=== PATIENT | female | born 1950 | race American Indian/Alaskan Native ===

== ENCOUNTER 2017-12-31 06:03 | Day surgery (SDC) | payer MEDICARE, OTHER ==
[~2017-12-31 06:03] MED LIST: LACTATED RINGERS 1,000 ML IV SCH; VERSED IV NR
[2017-12-31] MEDS ORDERED: ZOFRAN IV PRN (07:00)
[2017-12-31] MEDS ORDERED: TORADOL IV PRN (07:00)
[2017-12-31] MEDS ORDERED: DILAUDID IV PRN (07:00)
--- NOTE | 2017-12-31 07:01 | Anesthesia Day of Surgery ---
Anesthesia Day of Surgery - Day of Surgery Patient Examined: Yes Patient H&P Reviewed: Yes Patient is NPO: Yes
--- NOTE | 2017-12-31 07:01 | Anesthesia Consultation ---
Anesthesia Consult and Med Hx Date of service: 12/31/17 - Airway Anesthetic Teeth Evaluation: Good ROM Head & Neck: Adequate Mental/Hyoid Distance: Adequate Mallampati Class: Class II Intubation Access Assessment: Probably Good - Pulmonary Exam CTA: Yes - Cardiac Exam Cardiac Exam: RRR - Pre-Operative Health Status ASA Pre-Surgery Classification: ASA2 Proposed Anesthetic Plan: General (GA with LMA ok) - Pulmonary Hx Asthma: Yes - Cardiovascular System Hx Hypertension: Yes (30 YEARS) - Central Nervous System Hx Psychiatric Problems: No - Other Systems Hx Alcohol Use: Yes (OCCA) Hx Substance Use: No Hx Cancer: Yes
[2017-12-31] MEDS ORDERED: ANCEF/STERILE WATER 2 GM/20 ML IV NR (07:55)
[2017-12-31 08:13] LABS: Hematocrit 40.5 % (30.3-42.9); Hemoglobin 13.4 gm/dl (10.1-14.3); Mean Corpuscular HGB Conc 33 % (30-34); Mean Corpuscular Hemoglobin 31 pg (28-32); Mean Corpuscular Volume 93 fl (79-97); Platelet Count 232 K/mm3 (140-440); Red Blood Count 4.35 M/mm3 (3.65-5.03); Red Cell Distribution Width 14.1 % (13.2-15.2)
--- NOTE | 2017-12-31 08:17 | Short Stay Summary ---
Short Stay Documentation Date of service: 12/31/17 - History H&P: obtained from office - Allergies and Medications Current Medications: Allergies No Known Allergies Allergy (Verified 12/24/17 15:18) Home Medications Medication Instructions Recorded Confirmed Last Taken Type Allopurinol 300 mg PO DAILY 12/24/17 12/24/17 Unknown History Budesonide/Formoterol Fumarate 2 inh INHALATION DAILY 12/24/17 12/24/17 Unknown History [Symbicort 160-4.5 Mcg Inhaler] Cholecalciferol (Vitamin D3) 5,000 unit PO DAILY 12/24/17 12/24/17 Unknown History [Vitamin D3] Fesoterodine Fumarate [Toviaz] 4 mg PO DAILY 12/24/17 12/24/17 Unknown History Levalbuterol Tartrate [Xopenex Hfa] 1 puff IH DAILY PRN 12/24/17 12/24/17 Unknown History Potassium Citrate [Potassium 15 meq PO DAILY 12/24/17 12/24/17 Unknown History Citrate ER] RX: Montelukast Sodium 10 mg PO DAILY 12/24/17 12/24/17 Unknown History RX: amLODIPine [Norvasc] 5 mg PO DAILY 12/24/17 12/24/17 Unknown History Active Medications Cefazolin Sodium (Ancef/Sterile Water 2 Gm/20 Ml) 2 gm IV PREOP NR Hydromorphone HCl (Dilaudid) 0.5 mg IV Q10MIN PRN PRN Reason: Pain , Severe (7-10) Stop: 12/31/17 13:00 Lactated Ringer's (Lactated Ringers) 1,000 mls @ 100 mls/hr IV DIRECT MOUNA Last Admin: 12/31/17 08:06 Dose: 100 mls/hr Ketorolac Tromethamine (Toradol) 30 mg IV ONCE PRN PRN Reason: Pain, Moderate (4-6) Stop: 12/31/17 13:00 Midazolam HCl (Versed) 2 mg IV PREOP NR Stop: 12/31/17 23:59 Last Admin: 12/31/17 08:06 Dose: 2 mg Ondansetron HCl (Zofran) 4 mg IV ONCE PRN PRN Reason: Nausea And Vomiting Stop: 12/31/17 13:00 - Brief post op/procedure progress note Date of procedure: 12/31/17 Pre-op diagnosis: Left breast sebaceos cyst of the lower outer quadrant Post-op diagnosis: same Procedure: Left breast sebaceous cyst excisional biopsy of the lower outer quadrant Anesthesia: MAC Findings: Left breast sebaceous cyst at the 5:00 position 6 cm from the nipple Surgeon: RAZ GILLILAND Estimated blood loss: minimal Pathology: list (left breast sebaceous cyst) Specimen disposition: to lab Condition: stable - Disposition Condition at discharge: Good Disposition: DC-01 TO HOME OR SELFCARE Short Stay Discharge Plan Activity: other (no heavy lifting) Diet: regular Wound: other (keep incision clean and dry; may shower in 24 hours; no baths, pools or lakes; do not rub or scrub incision; wear supportive bra) Follow up with: GOOD DURAND MD [Primary Care Provider] - 7 Days RAZ GILLILAND MD [Staff Physician] - 7 Days
--- NOTE | 2017-12-31 08:19 | Operative Report ---
Operative Report Operative Report: Date of Service: December 31, 2017 Preoperative diagnosis: Left breast sebaceous cyst of the lower outer quadrant Postoperative diagnosis: Same Procedure: Left breast sebaceous cyst lowerouter quadrant excisional biopsy Surgeon: Mone Cueva M.D. Findings: Left breast sebaceous cyst of the lower outer quadrant Complications: None Drains: None Estimated blood loss: Minimal Disposition: PACU in good condition Indication for operative procedure: This is a 67-year-old lady with a personal history of right breast cancer. She recently had left breast sebaceous cyst infection that was treated with antibiotics and aspiration with resolution. Recommendations were to proceed with an exicisional biopsy given significant history of infection and risk of recurrence. She wished to proceed with the above procedure. The patient was procedure in detail: The patient was taken to the operating room and was laid supine. MAC anesthesia was administered. The left breast sebaceous cyst site was not easily seen but dark pigementation from prior infection was noted at the 5:00 position 6 cm from the nipple. Ultrasound performed with no suspicious lesions. The left breast was prepped and draped in the normal sterile operative fashion. Timeout was performed. The area of incision was anesthesized with 1% lidocaine mixed with quarter percent Marcaine. A breast incision was made with a 15 blade knife encompassing sebaceous cyst with dissection taken down to the subcutaneous tissues. The area of concern was removed with the aid of the Bovie cautery. The specimen was sent to pathology. Hemostasis was then obtained using the Bovie cautery. The breast cavity was irrigated and suctioned. The subcutaneous tissues were approximated and closed using interrupted 3-0 Vicryl and skin brought together and closed using a running 4-0 Monocryl followed by skin affix. She tolerated surgery very well and was awakened from anesthesia without any complication and transported to PACU in good condition.
[2017-12-31] MEDS ORDERED: MARCAINE 0.5% INFILTRATI ONE (08:34)
[2017-12-31] MEDS ORDERED: XYLOCAINE 1% 20 mL INFILTRATI ONE (08:34)
[2017-12-31] MEDS ORDERED: NACL 0.9% IR ONE (08:57)
--- NOTE | 2017-12-31 14:18 | Post Anesthesia Evaluation ---
- Post Anesthesia Evaluation Patient Participated: Yes Airway Patent: Yes Stable Respiratory Function: Yes Nausea/Vomiting: No Temp > 96.8F: Yes Pain Manageable: Yes Adequeate Hydration: Yes Anesthesia Complications: No Block Receding Appropriately: Not Applicable Patient on Ventilator: No
[2017-12-31 16:49] VITALS: BP 130/71
== END 2017-12-31 10:46 | disposition home or self-care (01) ==
LOC: OR 06:03
PROVIDERS: ATTEND Surgery
DX: N60.82 Other benign mammary dysplasias of left breast (principal); J45.909 Unspecified asthma, uncomplicated; I10 Essential (primary) hypertension; Z85.3 Personal history of malignant neoplasm of breast; Z90.710 Acquired absence of both cervix and uterus; Z98.890 Other specified postprocedural states; Z90.10 Acquired absence of unspecified breast and nipple; Z98.42 Cataract extraction status, left eye; Z98.41 Cataract extraction status, right eye
CPT/HCPCS: 36415; 85027; 88304

== ENCOUNTER 2020-09-21 10:41 | Outpatient (CLI) | payer MEDICARE, OTHER ==
--- NOTE | 2020-09-21 12:25 | Mammography Report ---
DIGITAL SCREENING MAMMOGRAM WITH CAD, 09/21/2020 CLINICAL INFORMATION / INDICATION: Routine screening mammography. The patient has a personal history of right breast cancer treated with mastectomy. TECHNIQUE: Digital left 2D mammography was obtained in the craniocaudal and mediolateral oblique pro jections. This examination was interpreted with the benefit of Computer-Aided Detection analysis. COMPARISON: 09/02/2019, 08/27/2018, 04/09/2018 FINDINGS: Breast Density: There are scattered areas of fibroglandular density. No dominant mass, suspicious calcifications, or architectural distortion in the left breast. IMPRESSION: No mammographic evidence of malignancy. Follow up recommendation: Routine yearly BI-RADS Category 1: Negative. A "normal" or negative report should not discourage follow up or biopsy of a clinically significant f inding. A written summary of these findings will be mailed to the patient. The patient will be entered into a mammography reporting system which will generate a reminder letter for the patient's next appointmen t at the appropriate interval. The [employer] recommends yearly mammograms starting at age 40 and continuing as l atif as a woman is in good health. Breast MRI is recommended for women with an approximate 20-25% or greater lifetime risk of breast cancer, including women with a strong family history of breast or ova bri cancer or who have been treated for Hodgkin's disease. Signer Name: April Diego MD Signed: 09/21/2020 12:21 PM Workstation Name: [id number]
== END 2020-09-21 10:42 | disposition home or self-care (01) ==
LOC: SPVWC 10:41
PROVIDERS: ATTEND Surgery
DX: Z12.31 Encounter for screening mammogram for malignant neoplasm of breast (principal)